=== PATIENT | female | born 1955 | race Caucasian/White ===

== ENCOUNTER 2016-12-06 15:03 | Outpatient (CLI) | payer MEDICARE ==
--- NOTE | 2016-12-06 19:26 | RAD ---
CHEST TWO VIEWS: 12/06/16 Comparison is made with the 08/02/16 study. The heat size is unchanged. There are no congestive changes or pleural effusions. No focal pulmonary infiltrates are seen to suggest pneumonia. At least three calcified masses are seen in the left lung. The most superior in the left upper lobe measures 10 mm as before. The second a little lower in the left upper lobe is 9 mm wide, same as bef ore. The third is just below the left hilum, is oblong in shape and measures 3.5 cm, also unchanged. The xavier themselves seem a little more prominent in size than they were previously. The trachea is midline. The bony structures showed no acute change. IMPRESSION: 1. No acute thoracic findings. 2. Three dense masses in the left lung that seem calcified and have not changed in size since . It seems likely that they are granulomatous in nature and longstanding. A much older film w ould be comforting. There is no sign of pneumonia. POS: HOME
== END 2016-12-06 15:04 | disposition home or self-care (01) ==
LOC: BURRAD 15:03
PROVIDERS: ATTEND Family Medicine
DX: L52 Erythema nodosum (principal); R91.8 Other nonspecific abnormal finding of lung field
CPT/HCPCS: 36415; 71020; 85025

== ENCOUNTER 2016-12-06 15:03 | Outpatient (CLI) | payer MEDICARE ==
[2016-12-06 15:19] LABS: #Eosinphils 0.2 thou/uL (0.0-0.7); #Lymphocytes 1.1 thou/uL (1.20-3.40); #Monocytes 0.5 thou/uL (0.11-0.59); #Neutrophils 3.8 thou/uL (1.40-6.50); %Basophils 0.6 % (0.0-1.0); %Eosinophils 2.8 % (0.0-10.0); %Monocytes 9.6 % (0.0-10.0); Hemoglobin 12.2 g/dL (12.0-16.0); Mean Corpuscular HGB CONC 31.3 g/dL (32.0-36.0); Mean Corpuscular Volume 83.2 fl (81.0-99.0); Mean Platelet Volume 6.9 fL (7.4-10.4); Platelet Count 257 thou/uL (130-400); RBC Distribution Width 14.2 % (11.5-14.5); Red Blood Cell (RBC) Count 4.68 mill/uL (4.20-5.40); White Blood Cell (WBC) Count 5.6 thou/uL (4.8-10.8)
== END 2016-12-06 15:04 ==
LOC: HPCALD 15:03
PROVIDERS: ATTEND Family Medicine
DX: L52 Erythema nodosum (principal)
CPT/HCPCS: 36415; 85025

== ENCOUNTER 2017-01-11 11:47 | Outpatient (CLI) | payer MEDICARE, BC | END 2017-01-11 11:48 | disposition home or self-care (01) | LOC: HPCALD 11:47 | PROVIDERS: ATTEND Family Medicine | DX: Z01.419 Encounter for gynecological examination (general) (routine) without abnormal findings (principal) ==

== ENCOUNTER 2018-02-18 17:12 | Outpatient (CLI) | payer MEDICARE ==
--- NOTE | 2018-02-18 19:15 | RAD ---
CHEST TWO VIEWS: 02/18/18 Comparison is made with the prior study dated 12/06/16. The heart is normal in size and the lungs are clear. Calcified granulomas are seen in the left upper lobe and calcified left hilar nodes are noted as before. They have not changed in appearance over the interval. There are no effusions. Trachea is midline. IMPRESSION: Evidence of prior granulomatous exposure, but no acute thoracic finding. POS: HOME
== END 2018-02-18 17:13 | disposition home or self-care (01) ==
LOC: BURRAD 17:12
PROVIDERS: ATTEND Family Medicine
DX: R06.02 Shortness of breath (principal)
CPT/HCPCS: 71046

== ENCOUNTER 2018-11-19 15:20 | Outpatient (CLI) | payer MEDICARE ==
--- NOTE | 2018-11-20 08:17 | RAD ---
THORACIC SPINE THREE VIEWS: 11/19/2018 FINDINGS: Epidural stimulator leads are in place. The bones are osteopenic, which makes seeing subtle detail d ifficult. No gross fracture is identified. Minimal osteophytes are seen at some of the mid thoracic levels, but it is not impressive. The disk spaces are largely preserved. There are a couple of que stionable rounded densities overlying the left heart shadow. They may be calcified granulomas or nod es. They were present even on the 2016 chest films, so they are of no real current concern. IMPRESSION: No acute thoracic spine findings. POS: HOME
--- NOTE | 2018-11-20 08:17 | RAD ---
LUMBAR SPINE THREE VIEWS: 11/19/2018 FINDINGS: Posterior fusion of L4 and L5 with bilateral pedicle screws is noted. There is no malalignment or fr acture seen. A disk spacer is present in the L4-L5 disk space. The other disk spaces are normal in height. The SI joints are unremarkable. IMPRESSION: No acute bony changes. POS: HOME
== END 2018-11-19 15:21 | disposition home or self-care (01) ==
LOC: BURRAD 15:20
PROVIDERS: ATTEND Family Medicine
DX: M54.41 Lumbago with sciatica, right side (principal)
CPT/HCPCS: 72072; 72100

== ENCOUNTER 2021-07-07 16:37 | Outpatient (CLI) | payer MEDICARE | END 2021-07-07 16:38 | disposition home or self-care (01) | LOC: BURRAD 16:37 | PROVIDERS: ATTEND Family Medicine | DX: R05.9 Cough, unspecified (principal) | CPT/HCPCS: 71046 ==